=== PATIENT | female | born 1945 | race Caucasian/White ===

== ENCOUNTER 2018-01-07 16:41 | Emergency (ER) | payer MEDICARE ==
[2018-01-07] MEDS: diazePAM 2 MG TAB PO (17:42)
== END 2018-01-07 17:52 | disposition home or self-care (01) ==
LOC: M ED 16:41
DX: M62.838 Other muscle spasm (principal); K58.9 Irritable bowel syndrome, unspecified; E03.9 Hypothyroidism, unspecified; K57.92 Diverticulitis of intestine, part unspecified, without perforation or abscess without bleeding; Z87.891 Personal history of nicotine dependence; Z88.5 Allergy status to narcotic agent; Z88.6 Allergy status to analgesic agent; Z79.899 Other long term (current) drug therapy; Z79.82 Long term (current) use of aspirin; Z79.1 Long term (current) use of non-steroidal anti-inflammatories (NSAID)
CPT/HCPCS: 99282

== ENCOUNTER → 2018-01-15 | Outpatient (CLI) | payer MEDICARE | LOC: M WUC 14:51 | DX: M54.2 Cervicalgia (principal) | CPT/HCPCS: 72052 ==